=== PATIENT | male | born 1995 | race Two or more races ===

== ENCOUNTER 2020-10-09 00:23 | Emergency (ER) | payer BC, OTHER ==
[~2020-10-09] VITALS: Ht 175.3 cm; Wt 74.8 kg
[2020-10-09 02:55] LABS: Urine Bacteria NONE SEEN /hpf (None Seen); Urine Blood Negative /uL (Negative); Urine Mucus FEW (None Seen); Urine Specific Gravity 1.013 (1.001-1.035); Urine WBC 2 /hpf (0 - 3)
[2020-10-09 03:42] VITALS: BP 135/74
[2020-10-09 09:41] LABS: Amphetamine Screen, Urine NEGATIVE (NEGATIVE); Barbiturate Scree,Urine NEGATIVE (NEGATIVE); Benzodiazephine Screen, Urine NEGATIVE (NEGATIVE); Cannabinoid Screen, Urine POSITIVE (NEGATIVE); Cocaine Screen, Urine NEGATIVE (NEGATIVE); Phencyclidine Screen, Urine NEGATIVE (NEGATIVE)
[2020-10-09 09:48] LABS: Opiate Scree,Urine NEGATIVE (NEGATIVE)
== END 2020-10-09 03:52 | disposition home or self-care (01) ==
LOC: ER 00:26
DX: F41.0 Panic disorder [episodic paroxysmal anxiety] (principal); R20.0 Anesthesia of skin; H93.13 Tinnitus, bilateral; F12.10 Cannabis abuse, uncomplicated; R00.0 Tachycardia, unspecified
CPT/HCPCS: 80307; 81001; 93005